=== PATIENT | male | born 1955 | race Caucasian/White ===

== ENCOUNTER → 2016-10-08 | Outpatient (CLI) | payer OTHER ==
[~2016-10-08] MED LIST: ASPI1TAB83; ATOR-26 PO; LISI-725 PO; METF-384 PO; XNX25
[2016-10-08 11:36] LABS: ESTIMATED AVERAGE GLUCOSE 148 mg/dl; HA1C FLAG Normal (Normal)
== END | disposition home or self-care (01) ==
LOC: C.LABBC 07:24
PROVIDERS: ATTEND Family Medicine
DX: E11.9 Type 2 diabetes mellitus without complications (principal)

== ENCOUNTER → 2017-04-23 | Outpatient (CLI) | payer OTHER ==
[2017-04-23 11:28] LABS: ALBUMIN 3.8 gm/dl (3.4-5.0); ALT/SGPT 35 U/L (12-78); BLOOD UREA NITROGEN 12 mg/dl (7-18); CALCIUM 9.3 mg/dl (8.5-10.1); CARBON DIOXIDE 27 mmol/L (21-32); GLUCOSE 173 mg/dl (70-99); POTASSIUM 4.9 mmol/L (3.5-5.1); SODIUM 134 mmol/L (136-145)
[2017-04-23 11:31] LABS: ALKALINE PHOSPHATASE 55 U/L (45-117); AST/SGOT 23 U/L (15-37); TOTAL PROTEIN 7.2 gm/dl (6.4-8.2)
[2017-04-23 11:36] LABS: HEMOGLOBIN A1C 6.9 % (4.5-5.6)
== END | disposition home or self-care (01) ==
LOC: C.LABBC 07:43
PROVIDERS: ATTEND Nurse Practitioner Adult Health
DX: E11.9 Type 2 diabetes mellitus without complications (principal); E78.00 Pure hypercholesterolemia, unspecified; I10 Essential (primary) hypertension; E55.9 Vitamin D deficiency, unspecified

== ENCOUNTER → 2017-06-12 | Outpatient (CLI) | payer OTHER ==
--- NOTE | 2017-06-12 12:56 | DIAGNOSTIC IMAGING REPORT ---
CHEST 2 VIEWS ROUTINE CLINICAL HISTORY: I10 [id number] Type 2 diabetes [id number] Hy pain. Cough. COMPARISON STUDY: No previous studies for comparison. FINDINGS: The bones soft tissues and hemidiaphragms are normal. The cardiomediastinal silhouette is normal. The lungs are clear. The pulmonary vasculature is normal. IMPRESSION: Negative chest. The above report was generated using voice recognition software. It may contain grammatical, syntax or spelling errors. Electronically signed by: Gagan Oleary M.D. 06/12/2017 12:54 PM Dictated Date/Time: 06/12/2017 12:54 PM
[2017-06-12 16:44] LABS: BASO % 0.3 %; BASO ABS # 0.02 K/uL (0-0.2); EOS % 4.1 %; EOS ABS # 0.25 K/uL (0-0.5); HEMATOCRIT 41.2 % (42-52); HEMOGLOBIN 14.4 g/dL (14.0-18.0); IG# 0.01 K/uL (0.00-0.02); LYMPH % 35.7 %; MEAN CELL VOLUME 92.2 fL (80-100); MEAN CORPUSCULAR HEMOGLOBIN 32.2 pg (25-34); MEAN PLATELET VOLUME 9.6 fL (7.4-10.4); MONO % 6.8 %; MONO ABS # 0.42 K/uL (0.11-0.59); NEUT % 52.9 %; NEUT ABS # 3.26 K/uL (1.4-6.5); PLATELET COUNT 243 K/uL (130-400); RED CELL DISTRIBUTION WIDTH CV 12.9 % (11.5-14.5); RED CELL DISTRIBUTION WIDTH SD 43.1 fL (36.4-46.3); WHITE BLOOD COUNT 6.16 K/uL (4.8-10.8)
[2017-06-12 17:08] LABS: ALBUMIN 3.5 gm/dl (3.4-5.0); ALT/SGPT 68 U/L (12-78); AST/SGOT 43 U/L (15-37); BLOOD UREA NITROGEN 19 mg/dl (7-18); CALCIUM 8.3 mg/dl (8.5-10.1); CARBON DIOXIDE 26 mmol/L (21-32); CREATININE 1.04 mg/dl (0.60-1.40); GLUCOSE 160 mg/dl (70-99); POTASSIUM 5.3 mmol/L (3.5-5.1); SODIUM 134 mmol/L (136-145)
[2017-06-12 17:18] LABS: ALKALINE PHOSPHATASE 64 U/L (45-117); TOTAL PROTEIN 6.8 gm/dl (6.4-8.2)
== END | disposition home or self-care (01) ==
LOC: C.RADBC 12:22
PROVIDERS: ATTEND Physician Assistant Medical
DX: R05 Cough (principal); E11.9 Type 2 diabetes mellitus without complications; I95.9 Hypotension, unspecified; E78.00 Pure hypercholesterolemia, unspecified; I10 Essential (primary) hypertension

== ENCOUNTER → 2017-07-27 | Day surgery (SDC) | payer OTHER ==
[2017-07-16 09:47] VITALS: Ht 172.7 cm; Wt 68.2 kg
[~2017-07-27] VITALS: Ht 172.7 cm; Wt 68.2 kg
[~2017-07-27] MED LIST changes: -ASPI1TAB83; +ASPI1TAB83 PO; +ATOR-22 PO; -ATOR-26 PO; +ESCI1TAB9 PO; +LIDOCAINE HCL 2% 2 ML VIAL (20MG/ML) ONE; -LISI-725 PO; +LISI1TAB3 PO; +METFTAB PO; +PROPOFOL IV EMULSION 10 MG/ML 20 ML VIAL IV ONE; +SODIUM CHLORIDE 0.9% 500ML 500 ML IV ONE; -XNX25
--- NOTE | 2017-07-27 09:08 | Endo History and Physical ---
History & Physical Date of Service: Jul 27, 2017. Chief Complaint: screening,history of polyps Referring Physician: Loly CARRILLO History of Present Illness 62 yo CM who presents for colonoscopy secondary to history of colon polyps. Past Medical History Diabetes, High Cholesterol, Hypertension Past Surgical History Hx Cardiac Surgery: No Hx Internal Defibrillator: No Hx Pacemaker: No Hx Abdominal Surgery: Yes (HERNIA REPAIR) Hx of Implantable Prosthesis: No Hx Post-Op Nausea and Vomiting: No Hx Cancer Surgery: No Hx Thoracic Surgery: No Hx Orthopedic: No Hx Urinary Tract Surgery: No Family History Polyp Social History Smoking Status: Former Smoker Hx Substance Use: No ( ) Hx Alcohol Use: Yes (COUPLE OF DRINKS DAILY OR LESS) Allergies Coded Allergies: No Known Allergies (Verified , 07/27/17) Current Medications Reported Home Medications Medications Dose Route/Sig Max Daily Dose Days Date Category Dose Instructions Zestril (Lisinopril) 30 Mg Tab 15 Mg PO QAM 07/16/17 Reported Lipitor (Atorvastatin Calcium) 20 Mg Tab 20 Mg PO DAILY 07/16/17 Reported TAKES WHEN HE REMENBERS Lexapro (Escitalopram Oxalate) 10 Mg Tab 10 Mg PO QAM 07/16/17 Reported Aspirin 81 Mg Tab 81 Mg PO QAM 10/26/13 Reported DOES NOT TAKE EVERY DAY PER PT Glucophage (Metformin Hcl) 1,000 Mg Tab 1,000 Mg PO QAM 10/26/13 Reported Glucophage Ext Rel (Metformin HCl) 500 Mg Tab 500 Mg PO QPM 07/16/17 Reported Vital Signs Weight (Kilograms): 68.18 Height (Feet): 5 Height (Inches): 8 Date Time Temp Pulse Resp B/P (MAP) Pulse Ox O2 Delivery O2 Flow Rate FiO2 07/27/17 08:47 37.2 91 98 160/88 (112) 98 Room Air Physical Exam General Appearance: WD/WN, no apparent distress Respiratory/Chest: Auscultation: breath sounds normal Cardiovascular: Heart Auscultation: RRR Abdomen: Bowel Sounds: normal Inspection & Palpation: soft, non-distended, no tenderness, guarding & rebound Assessment and Plan Assessment: 62 yo CM who presents for colonoscopy secondary to history of colon polyps. Plan: Proceed with colonoscopy.
--- NOTE | 2017-07-27 09:48 | Discharge Instructions ---
Endoscopy Patient Instructions Date / Procedure(s) Performed Jul 27, 2017. Colonoscopy Allergy Information Coded Allergies: No Known Allergies (Verified , 07/27/17) Discharge Date / Findings Jul 27, 2017. Colon polyp Diverticulosis Internal hemorrhoids Medication Instructions Stopped Medication(s): has not taken ASA "in a while" OK to resume all medications today as prescribed Reported Home Medications Medications Dose Route/Sig Max Daily Dose Days Date Category Dose Instructions Zestril (Lisinopril) 30 Mg Tab 15 Mg PO QAM 07/16/17 Reported Lipitor (Atorvastatin Calcium) 20 Mg Tab 20 Mg PO DAILY 07/16/17 Reported TAKES WHEN HE REMENBERS Lexapro (Escitalopram Oxalate) 10 Mg Tab 10 Mg PO QAM 07/16/17 Reported Aspirin 81 Mg Tab 81 Mg PO QAM 10/26/13 Reported DOES NOT TAKE EVERY DAY PER PT Glucophage (Metformin Hcl) 1,000 Mg Tab 1,000 Mg PO QAM 10/26/13 Reported Glucophage Ext Rel (Metformin HCl) 500 Mg Tab 500 Mg PO QPM 07/16/17 Reported Provider Instructions Activity Restrictions - No exercising or heavy lifting for 24 hours. - Do not drink alcohol the day of the procedure. - Do not drive a car or operate machinery until the day after the procedure. - Do not make any important decisions or sign important papers in 24 hours after the procedure. Following Day: - Return to full activity which may include returning to work/school. Diet Start your diet with liquids and light foods (jello, soup, juice, toast). Then eat your usual diet if not nauseated. Treatment For Common After Affects For mild abdominal pain, bloating, or excessive gas: - Rest - Eat lightly - Lie on right side Follow-Up Information Follow-up with Loly CARRILLO as scheduled Anesthesia Information What You Should Know You have had a procedure that required some medicine to reduce anxiety and discomfort. This treatment is called moderate sedation. After receiving the treatment, you may be sleepy, but you will be able to breathe on your own. The effects of the treatment may last for several hours. Follow these instructions along with Activity/Diet recommendations noted above: * Do NOT do anything where dizziness or clumsiness would be dangerous. * Rest quietly at home today, then you can be up and about tomorrow. * Have a responsible person stay with you the rest of today. * You may have had an I.V. today. If so, you may take the dressing off later today. Recommendations Call your doctor if: * Trouble breathing * Continuous vomiting for more than 24 hours * Temperature above 101 degrees * Severe abdominal pain or bloating * Pain not relieved by pain medicine ordered * There is increased drainage or redness from any incision * A large amount of rectal bleeding greater than 2-3 tablespoons. (If you had a polyp/s removed or have hemorrhoids, a small amount of blood - from the rectum is to be expected.) * You have any unanswered questions or concerns. IN THE EVENT OF A SERIOUS EMERGENCY, GO TO THE NEAREST EMERGENCY ROOM Your discharge instructions were prepared by provider Zach Perez. Patient Instructions Signature Page Simeon Campuzano Patient (or Guardian) Signature/Date: I have read and understand the instructions given to me by my caregivers. Caregiver/RN/Doctor Signature/Date: The above-named patient and/or guardian has received patient instructions on this date. + Original Patient Signature Page (only) stays with chart. Please make copy for patient.
--- NOTE | 2017-07-27 09:57 | GI REPORT ---
Procedure Date: 07/27/2017 9:11 AM Procedure: Colonoscopy Indications: High risk colon cancer surveillance: Personal history of colonic polyps Medicines: Monitored Anesthesia Care Complications: No immediate complications. Estimated Blood Loss: Estimated blood loss: none. Procedure: Pre-Anesthesia Assessment: - Prior to the procedure, a History and Physical was performed, and patient medications and allergies were reviewed. The patient's tolerance of previous anesthesia was also reviewed. The risks and benefits of the procedure and the sedation options and risks were discussed with the patient. All questions were answered, and informed consent was obtained. Prior Anticoagulants: The patient has taken no previous anticoagulant or antiplatelet agents. ASA Grade Assessment: II - A patient with mild systemic disease. After reviewing the risks and benefits, the patient was deemed in satisfactory condition to undergo the procedure. After I obtained informed consent, the scope was passed under direct vision. Throughout the procedure, the patient's blood pressure, pulse, and oxygen saturations were monitored continuously. The scope was introduced through the anus and advanced to the cecum, identified by appendiceal orifice and ileocecal valve. The colonoscopy was performed without difficulty. The patient tolerated the procedure well. The quality of the bowel preparation was good. The ileocecal valve, appendiceal orifice, and rectum were photographed. Findings: The perianal and digital rectal examinations were normal. A 5 mm polyp was found in the ascending colon. The polyp was sessile. The polyp was removed with a cold snare. Resection and retrieval were complete. Multiple small-mouthed diverticula were found in the sigmoid colon. Non-bleeding internal hemorrhoids were found during retroflexion. The hemorrhoids were small. Impression: - One 5 mm polyp in the ascending colon, removed with a cold snare. Resected and retrieved. - Diverticulosis in the sigmoid colon. - Non-bleeding internal hemorrhoids. Recommendation: - Resume previous diet. - Continue present medications. - Repeat colonoscopy for surveillance based on pathology results. - Return to primary care physician as previously scheduled. Zach Perez DO 07/27/2017 9:56:44 AM This report has been signed electronically. Note Initiated On: 07/27/2017 9:11 AM I attest to the content of the Intraoperative Record and orders documented therein, exceptions below
--- NOTE | 2017-07-27 10:11 | Anesthesiology Progress Note ---
Anesthesia Post Op Note Date & Time Jul 27, 2017 at 10:10 Vital Signs Pain Intensity: 0 Vital Signs Past 12 Hours Date Time Temp Pulse Resp B/P (MAP) Pulse Ox O2 Delivery O2 Flow Rate FiO2 07/27/17 10:08 71 16 126/78 (94) 98 Room Air 07/27/17 09:52 80 98 96/61 (73) 98 Room Air 07/27/17 08:47 37.2 91 98 160/88 (112) 98 Room Air Notes Mental Status: alert / awake / arousable, participated in evaluation Pt Amnestic to Procedure: Yes Nausea / Vomiting: adequately controlled Pain: adequately controlled Airway Patency, RR, SpO2: stable & adequate BP & HR: stable & adequate Hydration State: stable & adequate Anesthetic Complications: no major complications apparent
[2017-07-27 10:22] VITALS: BP 134/83; PULSE 71; O2SAT 98
== END | disposition home or self-care (01) ==
LOC: C.GI 08:15
PROVIDERS: ATTEND Internal Medicine
DX: Z12.11 Encounter for screening for malignant neoplasm of colon (principal); K57.30 Diverticulosis of large intestine without perforation or abscess without bleeding; K64.8 Other hemorrhoids; E11.9 Type 2 diabetes mellitus without complications; Z86.010 Personal history of colon polyps; I10 Essential (primary) hypertension; Z98.890 Other specified postprocedural states; Z83.71 Family history of colonic polyps; Z87.891 Personal history of nicotine dependence; Z79.899 Other long term (current) drug therapy; Z79.82 Long term (current) use of aspirin

== ENCOUNTER 2021-11-05 13:24 | Inpatient (IN) ==
[2021-11-05] MEDS ORDERED: SODIUM CHLORIDE 0.9% 1000ML 1,000 ML IV ONE (14:25)
--- NOTE | 2021-11-05 14:25 | Emergency Department Note ---
Impression & Plan Alcohol abuse, petroleum terminal plant operator (current) use of anticoagulants, Fall, Leukopenia, Transaminitis ED Provider Note NAME: JACINDA PAINTER AGE: 66 SEX: M : 1955 ARRIVES VIA: Walk-In INFORMANT: Patient ED PROVIDER(S): Low Perez DO CHIEF COMPLAINT: detox HPI: Patient is a 66-year-old male with a past medical history of hypomagnesium, long-term anticoagulants, alcohol abuse, diabetes, PE who presents to the ER for wanting to stop drinking. He drinks a liter to a liter and a half of vodka per day. He has been doing this for close to 3 years. His notes that he has fallen twice in the past 24 hours. He does not remember this. He denies any head pain or neck pain. No chest pain or belly pain. No other extremity pain. He notes that he does want to stop drinking. ROS: See above HPI for pertinent positives & negatives. A total of 10 systems reviewed and were otherwise negative. PAST MEDICAL HISTORY:See Below PAST SURGICAL HISTORY:See Below FAMILY HISTORY:See Below SOCIAL HISTORY:See Below HOME MEDICATIONS:See Below ALLERGIES:See Below VITALS:See Below PHYSICAL EXAMINATION: GENERAL: Sitting up in bed, alert, well appearing, well nourished, no distress, non-toxic EYE EXAM: normal conjunctiva. HEAD: NC/AT OROPHARYNX: no exudate, no erythema, lips, buccal mucosa, and tongue normal and mucous membranes are moist NECK: supple, no nuchal rigidity, no adenopathy, non-tender LUNGS: Clear to auscultation. Normal chest wall mechanics HEART: no murmurs, S1 normal and S2 normal ABDOMEN: abdomen soft, non-tender, normo-active bowel sounds, no masses, no rebound or guarding. UPPER EXTREMITIES: upper extremities are grossly normal. LOWER EXTREMITIES: No pitting edema. NEURO EXAM: Normal sensorium, cranial nerves II-XII grossly intact, normal speech, no gross weakness of arms, no gross weakness of legs. MEDICAL DECISION MAKING: Is a 66-year-old male who presents the ER for recurrent falls and alcohol abuse wanting to stop. IV was established blood work was obtained. Labs show mild leukopenia 4.5. No significant anemia. BMP along with LFTs was remarkable for mild transaminitis. Magnesium slightly low at 1.6. Glucose low at 61. Lipase was normal. UA was contaminated. Tox was negative. Alcohol was elevated 200. COVID-negative. T head and cervical spine was negative. Patient was updated be dside. He was discussed with the hospitalist for further observation due to quantity of alcohol that he had just and the likelihood of withdrawal. Triage Nursing notes reviewed. Limited review of prior medical records performed Vital Signs: reviewed and remarkable for hypotenison Differential diagnosis: Infection, dehydration, metabolic abnormality, hypo/hyperglycemia, electrolyte disturbance, anemia, hypoxia, cardiac sources, intracerebral event, toxicologic, neurologic, as well as other pathologies. ER treatment provided: See below Diagnostics interpreted by me: ECG: none Cardiac Monitoring: An order was placed for continuous cardiac monitoring. The monitor shows a rate of 80 with sinus rhythm. Laboratory studies: As stated above and show below. Imaging studies: CT head and neck were negative Consultation(s): Discussed with Dr. Vivas for further evaluation Procedures: none Critical Care: None Past Med/Surg History Medical History (Updated 11/05/21 @ 19:24 by Low Perez DO) Adopted child family history not known with exception to brother as he was adopted at young age Alcohol abuse resolved per pt Anxiety Arthritis Diverticulosis GERD (gastroesophageal reflux disease) Hx of gastric ulcer Hx of gastric ulcer Hyperlipidemia Hypertension Idiopathic scoliosis On anticoagulant therapy on warfarin daily Pulmonary embolism 2 YEARS AGO (REASON FOR COUMADIN) > unknown cause per pt Tubular adenoma of colon Type 2 diabetes mellitus NIDDM Surgical History H/O [place] I operation 2nd to perforated gastric ulcer - 12/2017 H/O hemorrhoidectomy H/O resection of stomach 2nd to perforated gastric ulcer - 12/2017 History of colonoscopy History of ear surgery REMOVED "SOMETHING IN EAR" History of right cataract surgery Hx of inguinal hernia surgery (10/25/19) Left Open Indirect and Direct Inguinal Hernia Repair with Mesh Dr. Melendrez 10/25/2019 Hx of vasectomy [place] teeth extracted Family History Brother Type 2 diabetes mellitus Hypertension Hemorrhoids Other Adopted person Unknown family medical history Social History Smoking Status: Former smoker Second Hand Exposure: No; Hx Alcohol Use: No Hx Substance Use: No Preferred Language: Tajik Communication Ability: Effective Visual Impairment: Limited Hearing Ability: Normal Reception Required: No Beliefs That Will Affect Care: None marital status: Current Living Situation: Spouse Current Living Situation Comment: sophia [phone] current occupational status: unemployed How many Children do You have: 1 Feels Safe at Home: Yes Childhood Exposure to Second-Hand Smoke: Yes caffeine: Yes Dental Care, Regularly: Yes Physical Activity Frequency: 5-6 Times per Week Physical Activity Frequency Comment: walks daily Seatbelt Use: always Sunscreen Use: No Assistive Devices: Glasses Allergies Allergies Allergy/AdvReac Type Severity Reaction Status Date / Time No Known Drug Allergies Allergy Unknown Verified 11/05/21 15:02 Home Meds Home Medications Medication Instructions Recorded Confirmed acetaminophen 500 mg tablet 1,000 mg PO DAILY PRN pain 01/02/20 11/05/21 (Tylenol Extra Strength) multivitamin 1 tab PO QAM 08/22/20 11/05/21 buspirone 10 mg tablet 10 mg PO BID 11/30/20 11/05/21 escitalopram oxalate 20 mg tablet 20 mg PO QAM 11/30/20 11/05/21 topiramate 100 mg tablet 100 mg PO PM 04/24/21 11/05/21 glipizide 5 mg tablet, extended 5 mg PO PM 05/31/21 11/05/21 release 24 hr pantoprazole 40 mg tablet,delayed 40 mg PO QAM 05/31/21 11/05/21 release clonidine HCl 0.1 mg tablet 0.1 mg PO DAILY 09/04/21 11/05/21 aripiprazole 2 mg tablet 2 mg PO QAM 11/05/21 11/05/21 Previous Rx's Medication Instructions Recorded metformin 500 mg tablet,extended 1,000 mg PO BID #360 tabs 11/21/20 release 24 hr atorvastatin 10 mg tablet 10 mg PO DAILY #90 tabs 07/01/21 lisinopril 2.5 mg tablet 2.5 mg PO DAILY #90 tabs 07/31/21 enoxaparin 40 mg/0.4 mL 40 mg (0.4 mL) subcut Q24H #30 09/25/21 subcutaneous syringe syringes Results & Data (ED) Vital Signs Vital Signs - 24 hr 11/05/21 13:40 11/05/21 14:10 11/05/21 14:13 Temperature 36.7 C Temperature Source Temporal Artery Scan Pulse Rate 82 Pulse Rate [Radial] Pulse Rhythm Pulse Rhythm [Radial] Pulse Strength [Radial] Respiratory Rate 18 Respiratory Effort / Characteristics Non-Labored Respiratory Depth Normal Respiratory Pattern Blood Pressure 94/72 L Blood Pressure [Left Arm] Blood Pressure Mean 79 Blood Pressure Mean [Left Arm] Blood Pressure Position [Left Arm] Pulse Oximetry 96 Oxygen Delivery Method Room Air Room Air Room Air Sepsis Recent Fever Within 48 Hours No Sepsis New/Unexplained Change in Mental Status No Sepsis Action Taken by Nursing No Action Required 11/05/21 14:31 11/05/21 15:38 11/05/21 17:57 Temperature Temperature Source Pulse Rate 83 Pulse Rate [Radial] 84 87 Pulse Rhythm Regular Pulse Rhythm [Radial] Regular Regular Pulse Strength [Radial] Normal Normal Respiratory Rate 18 17 17 Respiratory Effort / Characteristics Non-Labored Spontaneous Non-Labored Spontaneous Respiratory Depth Normal Normal Respiratory Pattern Regular Regular Blood Pressure Blood Pressure [Left Arm] 127/80 138/94 Blood Pressure Mean Blood Pressure Mean [Left Arm] 95 108 Blood Pressure Position [Left Arm] Sitting Lying Pulse Oximetry 98 98 98 Oxygen Delivery Method Room Air Room Air Room Air Sepsis Recent Fever Within 48 Hours Sepsis New/Unexplained Change in Mental Status Sepsis Action Taken by Nursing Laboratory Data Result diagrams: 11/05/21 14:11 11/05/21 14:11 Lab Results 11/05/21 11/05/21 11/05/21 Range/Units 14:08 14:08 14:11 WBC 4.53 L (4.8-10.8) K/ul RBC 4.32 L (4.63-6.08) M/uL Hgb 13.6 L (14.0-18.0) g/dl Hct 41.7 (40.1-51.0) % MCV 96.5 (80.0-100.0) fL MCH 31.5 (25.0-34.0) pg MCHC 32.6 (32.0-36.0) g/dL RDW Std Deviation 49.0 H (36.4-46.3) fL RDW Coeff of Norm 13.8 (11.5-14.5) % Plt Count 231 (130-400) K/uL MPV 9.8 (9.4-12.4) fL Immature Gran % (Auto) 0.2 % Neut % (Auto) 38.7 % Lymph % (Auto) 51.7 % Pender % (Auto) 7.5 % Eos % (Auto) 1.5 % Baso % (Auto) 0.4 % Neut # (Auto) 1.75 (1.4-6.5) K/uL Lymph # (Auto) 2.34 (1.2-3.4) K/uL Pender # (Auto) 0.34 (0.24-0.82) K/uL Eos # (Auto) 0.07 (0-0.50) K/uL Baso # (Auto) 0.02 (0-0.2) K/uL Immature Gran # (Auto) 0.01 (0.00-0.02) K/uL Sodium Cancelled Potassium Cancelled Chloride Cancelled Carbon Dioxide Cancelled Anion Gap Cancelled BUN Cancelled Creatinine Cancelled Est Cr Clr Drug Dosing Cancelled Est GFR ( Amer) Cancelled Est GFR (Non-Af Amer) Cancelled BUN/Creatinine Ratio Cancelled Glucose Cancelled Calcium Cancelled Magnesium (1.7-2.4) mg/dl Total Bilirubin (0.2-1.0) mg/dl Direct Bilirubin (0-0.2) mg/dl AST (13-39) U/L ALT (7-52) U/L Alkaline Phosphatase (34-104) U/L Total Protein (6.0-8.3) gm/dl Albumin (3.4-5.0) gm/dl Lipase (11-82) U/L Urine Color Urine Appearance (Clear) Urine pH (4.5-7.5) Ur Specific [place] (1.000-1.030) Urine Protein (Negative) Urine Glucose (UA) (Negative) Urine Ketones (Negative) Urine Blood (Negative) Urine Nitrite (Negative) Urine Bilirubin (Negative) Urine Urobilinogen (Negative) Ur Leukocyte Esterase (Negative) Urine WBC (Auto) (0-5) /hpf Urine RBC (Auto) (0-4) /hpf U Hyaline Cast (Auto) (0-5) /lpf U Epithel Cells (Auto) (0-5) /lpf Urine Bacteria (Auto) (Negative) Urine Opiates Screen (Neg) Ur Methadone, Qual (Neg) Urine Barbiturates (Neg) Ur Phencyclidine (PCP) (Neg) U Amphetamin/Meth Scrn (Neg) MDMA (Ecstasy) Screen (Neg) U Benzodiazepines Scrn (Neg) Ur Cocaine Metabolite (Neg) U Marijuana (THC) Screen (Neg) Ethyl Alcohol mg/dL 200.7 H (<10.0) mg/dl SARS-CoV-2, RNA, NAAT (NEGATIVE) 11/05/21 11/05/21 11/05/21 Range/Units 14:11 14:50 14:50 WBC (4.8-10.8) K/ul RBC (4.63-6.08) M/uL Hgb (14.0-18.0) g/dl Hct (40.1-51.0) % MCV (80.0-100.0) fL MCH (25.0-34.0) pg MCHC (32.0-36.0) g/dL RDW Std Deviation (36.4-46.3) fL RDW Coeff of Norm (11.5-14.5) % Plt Count (130-400) K/uL MPV (9.4-12.4) fL Immature Gran % (Auto) % Neut % (Auto) % Lymph % (Auto) % Pender % (Auto) % Eos % (Auto) % Baso % (Auto) % Neut # (Auto) (1.4-6.5) K/uL Lymph # (Auto) (1.2-3.4) K/uL Pender # (Auto) (0.24-0.82) K/uL Eos # (Auto) (0-0.50) K/uL Baso # (Auto) (0-0.2) K/uL Immature Gran # (Auto) (0.00-0.02) K/uL Sodium 141 Potassium 4.2 Chloride 103 Carbon Dioxide 26 Anion Gap 12 H BUN 22 Creatinine 1.15 Est Cr Clr Drug Dosing 60.3 Est GFR ( Amer) 75.9 Est GFR (Non-Af Amer) 65.5 BUN/Creatinine Ratio 19.1 Glucose 61 L Calcium 8.5 Magnesium 1.6 L (1.7-2.4) mg/dl Total Bilirubin 0.5 (0.2-1.0) mg/dl Direct Bilirubin 0.1 (0-0.2) mg/dl AST 54 H (13-39) U/L ALT 79 H (7-52) U/L Alkaline Phosphatase 55 (34-104) U/L Total Protein 6.5 (6.0-8.3) gm/dl Albumin 4.1 (3.4-5.0) gm/dl Lipase 45 (11-82) U/L Urine Color Yellow Urine Appearance Clear (Clear) Urine pH 5.0 (4.5-7.5) Ur Specific [place] 1.017 (1.000-1.030) Urine Protein 1+ H (Negative) Urine Glucose (UA) Negative (Negative) Urine Ketones Trace H (Negative) Urine Blood Trace H (Negative) Urine Nitrite Negative (Negative) Urine Bilirubin Negative (Negative) Urine Urobilinogen Negative (Negative) Ur Leukocyte Esterase Negative (Negative) Urine WBC (Auto) 1-5 (0-5) /hpf Urine RBC (Auto) 0-4 (0-4) /hpf U Hyaline Cast (Auto) 10-30 H (0-5) /lpf U Epithel Cells (Auto) >30 H (0-5) /lpf Urine Bacteria (Auto) Negative (Negative) Urine Opiates Screen Neg (Neg) Ur Methadone, Qual Neg (Neg) Urine Barbiturates Neg (Neg) Ur Phencyclidine (PCP) Neg (Neg) U Amphetamin/Meth Scrn Neg (Neg) MDMA (Ecstasy) Screen Neg (Neg) U Benzodiazepines Scrn Neg (Neg) Ur Cocaine Metabolite Neg (Neg) U Marijuana (THC) Screen Neg (Neg) Ethyl Alcohol mg/dL (<10.0) mg/dl SARS-CoV-2, RNA, NAAT (NEGATIVE) 11/05/21 Range/Units 15:51 WBC (4.8-10.8) K/ul RBC (4.63-6.08) M/uL Hgb (14.0-18.0) g/dl Hct (40.1-51.0) % MCV (80.0-100.0) fL MCH (25.0-34.0) pg MCHC (32.0-36.0) g/dL RDW Std Deviation (36.4-46.3) fL RDW Coeff of Norm (11.5-14.5) % Plt Count (130-400) K/uL MPV (9.4-12.4) fL Immature Gran % (Auto) % Neut % (Auto) % Lymph % (Auto) % [place] % (Auto) % Eos % (Auto) % Baso % (Auto) % Neut # (Auto) (1.4-6.5) K/uL Lymph # (Auto) (1.2-3.4) K/uL [place] # (Auto) (0.24-0.82) K/uL Eos # (Auto) (0-0.50) K/uL Baso # (Auto) (0-0.2) K/uL Immature Gran # (Auto) (0.00-0.02) K/uL Sodium Potassium Chloride Carbon Dioxide Anion Gap BUN Creatinine Est Cr Clr Drug Dosing Est GFR ( Amer) Est GFR (Non-Af Amer) BUN/Creatinine Ratio Glucose Calcium Magnesium (1.7-2.4) mg/dl Total Bilirubin (0.2-1.0) mg/dl Direct Bilirubin (0-0.2) mg/dl AST (13-39) U/L ALT (7-52) U/L Alkaline Phosphatase (34-104) U/L Total Protein (6.0-8.3) gm/dl Albumin (3.4-5.0) gm/dl Lipase (11-82) U/L Urine Color Urine Appearance (Clear) Urine pH (4.5-7.5) Ur Specific [place] (1.000-1.030) Urine Protein (Negative) Urine Glucose (UA) (Negative) Urine Ketones (Negative) Urine Blood (Negative) Urine Nitrite (Negative) Urine Bilirubin (Negative) Urine Urobilinogen (Negative) Ur Leukocyte Esterase (Negative) Urine WBC (Auto) (0-5) /hpf Urine RBC (Auto) (0-4) /hpf U Hyaline Cast (Auto) (0-5) /lpf U Epithel Cells (Auto) (0-5) /lpf Urine Bacteria (Auto) (Negative) Urine Opiates Screen (Neg) Ur Methadone, Qual (Neg) Urine Barbiturates (Neg) Ur Phencyclidine (PCP) (Neg) U Amphetamin/Meth Scrn (Neg) MDMA (Ecstasy) Screen (Neg) U Benzodiazepines Scrn (Neg) Ur Cocaine Metabolite (Neg) U Marijuana (THC) Screen (Neg) Ethyl Alcohol mg/dL (<10.0) mg/dl SARS-CoV-2, RNA, NAAT NEGATIVE (NEGATIVE) Administered Medications Discontinued Medications Sodium Chloride (Nss 1000ml) 1,000 mls @ 999 mls/hr IV .Q1H1M ONE Stop: 11/05/21 15:25 Last Infusion: 11/05/21 16:18 Dose: 0 mls/hr Documented By: Admin: 11/05/21 14:30 Dose: 999 mls/hr Documented By: [facility] Imaging Data Radiologist's Impression: Cervical Spine CT 11/05/21 14:21 CT cervical spine wo con CLINICAL HISTORY: fall . Neck pain COMPARISON STUDY: 09/12/2021 CT DOSE: 1091.96 mGy.cm TECHNIQUE: Standard CT of the Cervical Spine was performed without IV contrast. A dose lowering technique was utilized adhering to the principles of ALARA. FINDINGS: Bones: There is again a prominent torticollis, convex to the left. The bones are osteopenic. There is no evidence for an acute fracture or malalignment. The heights of the vertebral bodies are maintained. The vertebral bodies are in anatomic alignment. The odontoid is intact. Degenerative changes are seen at the atlantoaxial articulation. Disc spaces: There is again moderate to marked disc space narrowing from C2 through C7 with endplate cirrhosis and osteophyte formation. Apophyseal joints: Degenerative apophyseal joint disease is seen greater on the left than right. Soft tissues: The prevertebral soft tissues are within normal limits. IMPRESSION: 1. Osteopenia with persistent torticollis 2. No acute osseous pathology. 3. Degenerative disc and degenerative joint disease. ACT 112: Negative or not required by law. Electronically signed by: Yasir Rg M.D. 11/05/2021 3:[address] 11/05/21 14:21 CT head/brain wo con CLINICAL HISTORY: fall . Pain COMPARISON STUDY: 09/12/2021 CT DOSE: TECHNIQUE: Standard CT of the Brain was performed without IV contrast. A dose lowering technique was utilized adhering to the principles of ALARA. FINDINGS: Extraaxial space: There is no evidence for subdural hematoma. There are no extra-axial fluid collections. Ventricles and cisterns: The ventricles are mildly dilated bilaterally. There is no evidence for midline shift or mass effect. Parenchyma: There is no subarachnoid or intraparenchymal hemorrhage. There is no evidence for an acute infarct or cerebral edema. There is mild cerebral cortical atrophy and decreased attenuation in the periventricular white matter representing remote small vessel disease. There are no gross mass lesions. Osseous structures: There is no evidence for an acute fracture. The visualized paranasal sinuses are clear. The mastoid air cells are clear bilaterally. Soft tissues: There is no evidence for focal soft tissue swelling. IMPRESSION: 1. No acute intracerebral pathology. 2. Mild cerebral cortical atrophy and remote small vessel disease are again seen. ACT 112: Negative or not required by law. Electronically signed by: Yasir Rg M.D. 11/05/2021 3:00 PM Discharge Plan Visit Data Chief Complaint: Detox Request Stated Complaint: DETOX ED Provider: Low Perez Discharge Problem: Alcohol abuse, petroleum terminal plant operator (current) use of anticoagulants, Fall, Leukopenia, T ransaminitis Forms Stand Alone Forms: My [facility], Suicide Prevention Resources Prescriptions Prescriptions: No Action acetaminophen [Tylenol Extra Strength] 500 mg tablet 1,000 mg PO DAILY PRN (Reason: pain) multivitamin Tablet 1 tab PO QAM topiramate 100 mg tablet 100 mg PO PM enoxaparin 40 mg/0.4 mL syringe 40 mg subcut Q24H Qty: 30 1RF metformin 500 mg tablet extended release 24 hr 1,000 mg PO BID Qty: 360 3RF atorvastatin 10 mg tablet 10 mg PO DAILY Qty: 90 3RF lisinopril 2.5 mg tablet 2.5 mg PO DAILY Qty: 90 3RF clonidine HCl 0.1 mg tablet 0.1 mg PO DAILY buspirone 10 mg tablet 10 mg PO BID escitalopram oxalate 20 mg tablet 20 mg PO QAM glipizide 5 mg tablet extended release 24 hr 5 mg PO PM pantoprazole 40 mg tablet,delayed release (DR/EC) 40 mg PO QAM aripiprazole 2 mg tablet 2 mg PO QAM Referrals Referrals: Jose Norris DO [Primary Care Provider] -
[2021-11-05 14:28] LABS: Hematocrit (blood only) 41.7 % (40.1-51.0); Hemoglobin 13.6 g/dl (14.0-18.0); Mean Corpuscular Hemoglobin 31.5 pg (25.0-34.0); Mean Corpuscular Hgb Conc 32.6 g/dL (32.0-36.0); Mean Corpuscular Volume 96.5 fL (80.0-100.0); Mean Platelet Volume 9.8 fL (9.4-12.4); Platelet Count 231 K/uL (130-400); RDW Coefficient of Variation 13.8 % (11.5-14.5); Red Blood Count 4.32 M/uL (4.63-6.08); White Blood Count 4.53 K/ul (4.8-10.8)
[2021-11-05 14:48] LABS: Albumin Level 4.1 gm/dl (3.4-5.0); BUN Creatinine Ratio 19.1 (10-20); Bilirubin Direct 0.1 mg/dl (0-0.2); Bilirubin,Total 0.5 mg/dl (0.2-1.0); Calcium 8.5 mg/dl (8.5-10.1); Creatinine Clr Calc Pharmacy 60.3 ml/min; Est GFR (African American) 75.9 ml/min; Est GFR (Non-African American) 65.5 ml/min; Magnesium 1.6 mg/dl (1.7-2.4); Potassium 4.2 mmol/L (3.5-5.1); Total Protein 6.5 gm/dl (6.0-8.3)
--- NOTE | 2021-11-05 15:02 | CT Scan Report ---
CT head/brain wo con CLINICAL HISTORY: fall . Pain COMPARISON STUDY: 09/12/2021 CT DOSE: TECHNIQUE: Standard CT of the Brain was performed without IV contrast. A dose lowering technique was utilized adhering to the principles of ALARA. FINDINGS: Extraaxial space: There is no evidence for subdural hematoma. There are no extra-axial fluid collecti ons. Ventricles and cisterns: The ventricles are mildly dilated bilaterally. There is no evidence for midl ine shift or mass effect. Parenchyma: There is no subarachnoid or intraparenchymal hemorrhage. There is no evidence for an acut e infarct or cerebral edema. There is mild cerebral cortical atrophy and decreased attenuation in the periventricular white matter representing remote small vessel disease. There are no gross mass lesio ns. Osseous structures: There is no evidence for an acute fracture. The visualized paranasal sinuses are clear. The mastoid air cells are clear bilaterally. Soft tissues: There is no evidence for focal soft tissue swelling. IMPRESSION: 1. No acute intracerebral pathology. 2. Mild cerebral cortical atrophy and remote small vessel disease are again seen. ACT 112: Negative or not required by law. Electronically signed by: Yasir Rg M.D. 11/05/2021 3:00 PM
--- NOTE | 2021-11-05 15:07 | CT Scan Report ---
CT cervical spine wo con CLINICAL HISTORY: fall . Neck pain COMPARISON STUDY: 09/12/2021 CT DOSE: 1091.96 mGy.cm TECHNIQUE: Standard CT of the Cervical Spine was performed without IV contrast. A dose lowering josh hnique was utilized adhering to the principles of ALARA. FINDINGS: Bones: There is again a prominent torticollis, convex to the left. The bones are osteopenic. There is no evidence for an acute fracture or malalignment. The heights of the vertebral bodies are maintaine d. The vertebral bodies are in anatomic alignment. The odontoid is intact. Degenerative changes are s een at the atlantoaxial articulation. Disc spaces: There is again moderate to marked disc space narrowing from C2 through C7 with endplate cirrhosis and osteophyte formation. Apophyseal joints: Degenerative apophyseal joint disease is seen greater on the left than right. Soft tissues: The prevertebral soft tissues are within normal limits. IMPRESSION: 1. Osteopenia with persistent torticollis 2. No acute osseous pathology. 3. Degenerative disc and degenerative joint disease. ACT 112: Negative or not required by law. Electronically signed by: Yasir Rg M.D. 11/05/2021 3:05 PM
[2021-11-05 15:31] LABS: Basophils # (auto) 0.02 K/uL (0-0.2); Basophils % (auto) 0.4 %; Eosinophils # (auto) 0.07 K/uL (0-0.50); Eosinophils % (auto) 1.5 %; Immature Granulocytes # (auto) 0.01 K/uL (0.00-0.02); Immature Granulocytes % (auto) 0.2 %; Lymphocytes # (auto) 2.34 K/uL (1.2-3.4); Lymphocytes % (auto) 51.7 %; Monocytes # (auto) 0.34 K/uL (0.24-0.82); Monocytes % (auto) 7.5 %; Neutrophils # (auto) 1.75 K/uL (1.4-6.5); Neutrophils % (auto) 38.7 %
[2021-11-05 15:53] LABS: Appearance Urine Clear (Clear); Bacteria Urine Automated Negative (Negative); Bilirubin Urine Negative (Negative); Blood Urine Trace (Negative); Color Urine Yellow; Epithelial Cell Urine Auto >30 /lpf (0-5); Glucose Urine UA Negative (Negative); Ketones Urine Trace (Negative); Leukocyte Esterase Urine Negative (Negative); Nitrite Urine Negative (Negative); Protein Urine 1+ (Negative); RBC Urine Automated 0-4 /hpf (0-4); Specific Gravity Urine 1.017 (1.000-1.030); Urobilinogen Urine Negative (Negative)
[2021-11-05] MEDS ORDERED: PHENobarbital sodium 65 MG/ML VIAL IV STA (16:02)
[2021-11-05] MEDS ORDERED: SODIUM CHLORIDE 0.9% IV ONE (16:15)
[2021-11-05] MEDS ORDERED: PHENOBARBITAL SODIUM IV ONE (16:15)
[2021-11-05 16:42] LABS: Amphetamines+Metham, Urine Neg (Neg); Barbiturates, Urine Neg (Neg); Benzodiazepine, Urine Neg (Neg); Cocaine, Urine Neg (Neg); MDMA (Ecstacy), Urine Neg (Neg); Methadone, Urine Neg (Neg); Opiate, Urine Neg (Neg); Phencyclidine, Urine Neg (Neg)
--- NOTE | 2021-11-05 16:52 | History & Physical Report ---
Date of Service November 05, 2021 Assessment & Plan (1) Alcohol abuse: Plan: Drinks 1 to 1.5 bottles of vodka per day for years. No major hx of withdrawals per patient. - Given no hx of cirrhosis and lack of other acute medical issues, he seems like a good candidate for phenobarbital taper. With no major acute withdrawal symptoms, will start with PO. * Phenobarbital 90 mg PO TID through 11/06 * Phenobarbital 60 mg PO TID on 11/07 * Phenobarbital 30 mg PO TID on 11/08, then stop. - Hold dose if RASS < -1 (ie anything other than a light sleep). Notify provider if skipping doses - Dose-reduced Ativan also entered with [facility] protocol. (2) Type 2 diabetes mellitus: Plan: A1c was 6.3% in 08/2021. - Hold oral meds. - Sliding scale insulin (3) Hypertension: Plan: BP in the ER was 130/80. - Continue home lisinopril (4) Hyperlipidemia: Plan: - Continue atorvastatin (5) Anxiety: Plan: No overt anxiety on my exam today. - Continue home aripiprazole, buspirone, clonidine, escitalopram, and topiramate - Monitor while adding phenobarbital for his alcohol withdrawal (6) Pulmonary embolism: Plan: Hx of PE. Was on warfarin, but switched to Lovenox given difficulty with labile INR in setting of heavy drinking. - Continue Lovenox 40 mg SQ daily History of Present Illness Primary Care Provider: Jose Norris, DO 66yo M w/ hx of PE, DM2, GERD, and alcohol abuse who presents with request for alcohol detox. The patient reports he drinks 1 to 1 1/2 bottles of vodka per day. He has had this approximate level of alcohol intake for years. He does not remember his last sustained period of sobriety. He has never had alcohol withdrawal seizures or DTs. He reports that he will sometimes get tremors and has felt "uncomfortable" in the past when going through withdrawals. Allergies Allergy/AdvReac Type Severity Reaction Status Date / Time No Known Drug Allergies Allergy Unknown Verified 11/05/21 15:02 Home Medications Medication Instructions Recorded Confirmed Type acetaminophen 500 mg tablet 1,000 mg PO DAILY PRN pain 01/02/20 11/05/21 History (Tylenol Extra Strength) multivitamin 1 tab PO QAM 08/22/20 11/05/21 History metformin 500 mg tablet,extended 1,000 mg PO BID #360 tabs 11/21/20 11/05/21 Rx release 24 hr buspirone 10 mg tablet 10 mg PO BID 11/30/20 11/05/21 History escitalopram oxalate 20 mg tablet 20 mg PO QAM 11/30/20 11/05/21 History topiramate 100 mg tablet 100 mg PO PM 04/24/21 11/05/21 History glipizide 5 mg tablet, extended 5 mg PO PM 05/31/21 11/05/21 History release 24 hr pantoprazole 40 mg tablet,delayed 40 mg PO QAM 05/31/21 11/05/21 History release atorvastatin 10 mg tablet 10 mg PO DAILY #90 tabs 07/01/21 11/05/21 Rx lisinopril 2.5 mg tablet 2.5 mg PO DAILY #90 tabs 07/31/21 11/05/21 Rx clonidine HCl 0.1 mg tablet 0.1 mg PO DAILY 09/04/21 11/05/21 History enoxaparin 40 mg/0.4 mL 40 mg (0.4 mL) subcut Q24H #30 09/25/21 11/05/21 Rx subcutaneous syringe syringes aripiprazole 2 mg tablet 2 mg PO QAM 11/05/21 11/05/21 History Past Med/Surg History Medical History (Updated 11/05/21 @ 16:51 by Víctor Vivas MD) Adopted child family history not known with exception to brother as he was adopted at young age Alcohol abuse resolved per pt Anxiety Arthritis Diverticulosis GERD (gastroesophageal reflux disease) Hx of gastric ulcer Hx of gastric ulcer Hyperlipidemia Hypertension Idiopathic scoliosis On anticoagulant therapy on warfarin daily Pulmonary embolism 2 YEARS AGO (REASON FOR COUMADIN) > unknown cause per pt Tubular adenoma of colon Type 2 diabetes mellitus NIDDM Surgical History H/O Billroth I operation 2nd to perforated gastric ulcer - 12/2017 H/O hemorrhoidectomy H/O resection of stomach 2nd to perforated gastric ulcer - 12/2017 History of colonoscopy History of ear surgery REMOVED "SOMETHING IN EAR" History of right cataract surgery Hx of inguinal hernia surgery (10/25/19) Left Open Indirect and Direct Inguinal Hernia Repair with Mesh Dr. Melendrez 10/25/2019 Hx of vasectomy [place] teeth extracted Family History Brother Type 2 diabetes mellitus Hypertension Hemorrhoids Other Adopted person Unknown family medical history Social History Smoking Status: Former smoker Second Hand Exposure: No; Hx Alcohol Use: No Hx Substance Use: No Preferred Language: Nepali Communication Ability: Effective Visual Impairment: Limited Hearing Ability: Normal Field Research Associate Required: No Beliefs That Will Affect Care: None marital status: Current Living Situation: Spouse Current Living Situation Comment: sophia [phone] current occupational status: unemployed How many Children do You have: 1 Feels Safe at Home: Yes Childhood Exposure to Second-Hand Smoke: Yes caffeine: Yes Dental Care, Regularly: Yes Physical Activity Frequency: 5-6 Times per Week Physical Activity Frequency Comment: walks daily Seatbelt Use: always Sunscreen Use: No Assistive Devices: Glasses Review of Systems Review of Systems: All systems reviewed & are unremarkable except as noted in HPI & below Physical Exam Constitutional: WD/WN, vitals as above Eyes: EOM intact bilaterally; no conjunctival abnormality ENMT: external ear and nose normal, oropharynx normal Neck: trachea midline, no thyromegaly normal visual inspection Respiratory: normal respiratory effort, lungs clear to auscultation no respiratory distress Cardiovascular: RRR, no murmur, no edema Gastrointestinal (Abdomen): Inspection/Auscultation: abdomen normal to inspection; abdomen not distended Musculoskeletal: no cyanosis or clubbing, extremities motor strength 5/5 Skin: no rashes, warm and dry Neurologic: moves all extremities and awake No tremor with outstretched arms. Mild tongue fasciculations. Psychiatric: Orientation: alert, oriented to person and cooperative Results & Data Results & Data ([facility]) Vital Signs (Past 12 Hours) Vital Signs Temp Pulse Pulse Resp BP BP Pulse Ox 11/05/21 15:38 84 17 127/80 98 11/05/21 14:31 83 18 98 11/05/21 14:13 11/05/21 14:10 11/05/21 13:40 36.7 C 82 18 94/72 L 96 O2 Del Method 11/05/21 15:38 Room Air 11/05/21 14:31 Room Air 11/05/21 14:13 Room Air 11/05/21 14:10 Room Air 11/05/21 13:40 Room Air Code Status & VTE Plan VTE Prophylaxis Plan VTE Prophylaxis will be ordered: Yes PG Care Time/CCT Total # of Minutes Spent Total Time Spent with Patient: Total time spent is greater than 50% in coordination of care (as documented) at patient's floor/unit and/or counseling patient: Coding Level of Care Code 13599 Initial Inpt Care Lvl 3 Diagnoses Alcohol abuse F10.10 Type 2 diabetes mellitus E11.9 Hypertension I10 Hyperlipidemia E78.5 Anxiety F41.9 Pulmonary embolism I26.99
[2021-11-05] MEDS ORDERED: ACETAMINOPHEN 500 MG TAB PO PRN (19:52)
[2021-11-05] MEDS ORDERED: LORazepam 2 MG in SYRINGE 1.5 ML IV PRN (19:52)
[2021-11-05] MEDS ORDERED: ONDANSETRON INJ 2 MG/ML 2 ML VIAL IV PRN (19:52)
[2021-11-05] MEDS ORDERED: GLUCAGON FOR INJ 1 MG VIAL SQ PRN (19:52)
[2021-11-05] MEDS ORDERED: DEXTROSE 50% 50 ML SYRINGE IV PRN (19:52)
[2021-11-05] MEDS ORDERED: THIAMINE HCL 300 MG in SYRINGE 9 ML IV SCH (19:52)
[2021-11-05] MEDS ORDERED: GLUCOSE 10 TAB/TUBE PO PRN (19:52)
[2021-11-05] MEDS ORDERED: GLUCOSE 40% GEL 15 GM TUBE PO PRN (19:52)
[2021-11-05] MEDS ORDERED: Ativan IV Alcohol Withdrawal--Active Protocol IV PRN (19:52)
[2021-11-05] MEDS ORDERED: CARBOHYDRATES FOR HYPOGLYCEMIA PO PRN (19:52)
[2021-11-05] MEDS ORDERED: LORazepam 0.5 MG in SYRINGE 0.5 ML IV PRN (19:52)
[2021-11-05] MEDS ORDERED: LORazepam 1 MG in SYRINGE 1 ML IV PRN (19:52)
[2021-11-05] MEDS ORDERED: ENOXAPARIN INJ 40 MG/0.4 ML SYR SQ SCH (20:00)
[2021-11-05] MEDS ORDERED: PHENobarbitaL 30 MG TAB PO STA (20:48)
[2021-11-05] MEDS: FOLIC ACID 1 MG TAB PO SCH (21:09)
[2021-11-05] MEDS: TOPIRAMATE 100 MG TAB PO SCH (21:10)
[2021-11-05] MEDS: busPIRone 5 MG TAB PO SCH (21:10)
[2021-11-05] MEDS: PHENobarbitaL 30 MG TAB PO SCH (21:28)
[2021-11-05] MEDS: INSULIN ASPART PER UNIT SC SCH (21:48)
[2021-11-05] MEDS: THIAMINE HCL 300 MG in SODIUM CHLORIDE 0.9% 50 ML IV SCH (22:53)
[2021-11-06 05:52] LABS: Hematocrit (blood only) 38.5 % (40.1-51.0); Hemoglobin 12.8 g/dl (14.0-18.0); Mean Corpuscular Hemoglobin 31.5 pg (25.0-34.0); Mean Corpuscular Hgb Conc 33.2 g/dL (32.0-36.0); Mean Corpuscular Volume 94.8 fL (80.0-100.0); Mean Platelet Volume 10.2 fL (9.4-12.4); Platelet Count 197 K/uL (130-400); RDW Coefficient of Variation 13.2 % (11.5-14.5); RDW Standard Deviation 45.9 fL (36.4-46.3); Red Blood Count 4.06 M/uL (4.63-6.08); White Blood Count 3.96 K/ul (4.8-10.8)
[2021-11-06 06:32] LABS: Albumin Globulin Ratio 1.8 (0.9-2); Albumin Level 3.7 gm/dl (3.4-5.0); Calcium 7.9 mg/dl (8.5-10.1); Creatinine Clr Calc Pharmacy 89.4 ml/min; Est GFR (Non-African American) 94.9 ml/min; Globulin 2.1 gm/dl (2.5-4.0); Magnesium 1.4 mg/dl (1.7-2.4); Potassium 4.1 mmol/L (3.5-5.1); Total Protein 5.8 gm/dl (6.0-8.3)
[2021-11-06 07:23] LABS: Estimated Average Glucose 114 mg/dl; Hemoglobin A1C 5.6 % (4.5-5.6)
--- NOTE | 2021-11-06 08:01 | Hospitalist Progress Note ---
Date of Service November 06, 2021 Assessment & Plan (1) Alcohol abuse: Plan: 66yo M w/ hx of PE, DM2, GERD, and alcohol abuse who presents with request for alcohol detox. (1) Alcohol abuse: Drinks 1 to 1.5 bottles of vodka per day for years. No major hx of withdrawals p er patient. - Given no hx of cirrhosis and lack of other acute medical issues, he seems like a good candidate for phenobarbital taper. With no major acute withdrawal symptoms, will start with PO. * Phenobarbital 90 mg PO TID through 11/06 - today * Phenobarbital 60 mg PO TID on 11/07 * Phenobarbital 30 mg PO TID on 11/08, then stop.- Hold dose if RASS < -1 (ie anything other than a light sleep). Notify provider if skipping doses - Dose-reduced Ativan also entered with AWSS protocol, has not required any as of today ()Bloody Stool -lovenox held in setting of possible GI bleed -EGD 2019 patent billroth I gastroduodostomy, normal study -last colonoscopy 2017 - one polyp removed. internal hemorrhoids + -increased protonix to 40mg BID -H&H q8h -suspect bleed likely hemorrhoidal. consider GI consult if bleeding recurs. (2) Type 2 diabetes mellitus: A1c was 6.3% in 08/2021. - Hold oral meds. - Sliding scale insulin (3) Hypertension: - Continue home lisinopril (4) Hyperlipidemia: - Continue atorvastatin (5) Anxiety: No overt anxiety on my exam today. - Continue home aripiprazole, buspirone, clonidine, escitalopram, and topiramate - Monitor while adding phenobarbital for his alcohol withdrawal (6) Hx of Pulmonary embolism: Was on warfarin, but switched to Lovenox given difficulty with labile INR in setting of heavy drinking. - hold lovenox in setting of bloody stool -SCDs added. reasses in am FENa: crab consistent Code Status: Full DVT PPX: SCDs Case Management: pending Dispo: med/tele Clare Velazco Do PGY 2, FCM (2) Type 2 diabetes mellitus: (3) Hypertension: (4) Hyperlipidemia: (5) Anxiety: (6) Pulmonary embolism: Admission and Anticipated Discharge Date Admission Date: November 05, 2021 Supervising Physician Co-Signing Physician Notes Resident Physician Supervision Note: I independently interviewed and examined the patient and verified the calvillo history and physical, reviewed labs and image studies and agree with resident Dr. Velazco findings and care plan. Subjective Patient seen at bedside, calm comfortable cooperative. He complains of a mild headache, denies any nausea vomitting, SOB CP abd pain diarrhea constipation at this time. Patient describes drinking 0.5L vodka daily, last drink 2 days ago, would like resources on how to quit alcohol. no acute concerns at this time. Review of Systems Review of Systems: Negative fever chills Negative headache dizziness Negative chest pain palpitations SOB Negative nausea vomitting diarrhea constipation Negative numbness tingling rash swelling Physical Exam Constitutional: WD/WN, vitals as above Eyes: PERRL, conjunctivae normal, anicteric sclerae ENMT: external ear and nose normal, oropharynx normal Neck: trachea midline, no thyromegaly Respiratory: normal respiratory effort, lungs clear to auscultation Cardiovascular: RRR, no murmur, no edema Chest (Breasts): Chest: normal inspection of chest Gastrointestinal (Abdomen): normal bowel sounds, soft, nontender, no hepatosplenomegaly Skin: no rashes, warm and dry Results & Data Results & Data ([facility]) Vital Signs (Past 12 Hours) Vital Signs Temp Pulse Pulse Resp BP BP Pulse Ox 11/06/21 07:39 63 16 130/81 97 11/06/21 06:00 69 16 145/84 H 94 11/06/21 04:00 66 17 137/91 95 11/06/21 02:00 58 L 17 135/84 97 11/06/21 01:02 36.7 C 59 L 22 142/88 H 95 11/05/21 23:00 69 24 127/76 95 11/05/21 22:30 76 23 95 11/05/21 21:14 36.8 C 78 24 154/88 H 95 O2 Del Method 11/06/21 07:39 Room Air 11/06/21 06:00 Room Air 11/06/21 04:00 Room Air 11/06/21 02:00 Room Air 11/06/21 01:02 Room Air 11/05/21 23:00 Room Air 11/05/21 22:30 Room Air 11/05/21 21:14 Room Air Diagnostic Findings Laboratory Results WBC 3.96 K/ul (4.8-10.8) L 11/06/21 05:24 RBC 4.06 M/uL (4.63-6.08) L 11/06/21 05:24 Hgb 12.8 g/dl (14.0-18.0) L 11/06/21 05:24 Hct 38.5 % (40.1-51.0) L 11/06/21 05:24 MCV 94.8 fL (80.0-100.0) 11/06/21 05:24 MCH 31.5 pg (25.0-34.0) 11/06/21 05:24 MCHC 33.2 g/dL (32.0-36.0) 11/06/21 05:24 RDW Std Deviation 45.9 fL (36.4-46.3) 11/06/21 05:24 RDW Coeff of Norm 13.2 % (11.5-14.5) 11/06/21 05:24 Plt Count 197 K/uL (130-400) 11/06/21 05:24 MPV 10.2 fL (9.4-12.4) 11/06/21 05:24 Immature Gran % (Auto) 0.2 % 11/05/21 14:11 Neut % (Auto) 38.7 % 11/05/21 14:11 Lymph % (Auto) 51.7 % 11/05/21 14:11 [place] % (Auto) 7.5 % 11/05/21 14:11 Eos % (Auto) 1.5 % 11/05/21 14:11 Baso % (Auto) 0.4 % 11/05/21 14:11 Neut # (Auto) 1.75 K/uL (1.4-6.5) 11/05/21 14:11 Lymph # (Auto) 2.34 K/uL (1.2-3.4) 11/05/21 14:11 [place] # (Auto) 0.34 K/uL (0.24-0.82) 11/05/21 14:11 Eos # (Auto) 0.07 K/uL (0-0.50) 11/05/21 14:11 Baso # (Auto) 0.02 K/uL (0-0.2) 11/05/21 14:11 Immature Gran # (Auto) 0.01 K/uL (0.00-0.02) 11/05/21 14:11 Sodium 137 mmol/L (136-145) 11/06/21 05:24 Potassium 4.1 mmol/L (3.5-5.1) 11/06/21 05:24 Chloride 102 mmol/L (98-107) 11/06/21 05:24 Carbon Dioxide 25 mmol/L (21-32) 11/06/21 05:24 Anion Gap 10 (3-11) 11/06/21 05:24 BUN 15 mg/dl (6-23) 11/06/21 05:24 Creatinine 0.75 mg/dl (0.6-1.4) D 11/06/21 05:24 Est Cr Clr Drug Dosing 89.4 ml/min 11/06/21 05:24 Est GFR ( Amer) 110.0 ml/min 11/06/21 05:24 Est GFR (Non-Af Amer) 94.9 ml/min 11/06/21 05:24 BUN/Creatinine Ratio 20.0 (10-20) 11/06/21 05:24 Glucose 64 mg/dl (70-99(Fasting)) L 11/06/21 05:24 POC Glucose 258 mg/dl (70-99) H 11/06/21 11:21 Estimat Average Glucose 114 mg/dl 11/06/21 05:24 Hemoglobin A1c 5.6 % (4.5-5.6) 11/06/21 05:24 Calcium 7.9 mg/dl (8.5-10.1) L 11/06/21 05:24 Magnesium 1.4 mg/dl (1.7-2.4) L 11/06/21 05:24 Total Bilirubin 1.0 mg/dl (0.2-1.0) D 11/06/21 05:24 Direct Bilirubin 0.1 mg/dl (0-0.2) 11/05/21 14:11 AST 46 U/L (13-39) H 11/06/21 05:24 ALT 65 U/L (7-52) H 11/06/21 05:24 Alkaline Phosphatase 48 U/L (34-104) 11/06/21 05:24 Total Protein 5.8 gm/dl (6.0-8.3) L 11/06/21 05:24 Albumin 3.7 gm/dl (3.4-5.0) 11/06/21 05:24 Globulin 2.1 gm/dl (2.5-4.0) L 11/06/21 05:24 Albumin/Globulin Ratio 1.8 (0.9-2) 11/06/21 05:24 Lipase 45 U/L (11-82) 11/05/21 14:11 Urine Color Yellow 11/05/21 14:50 Urine Appearance Clear (Clear) 11/05/21 14:50 Urine pH 5.0 (4.5-7.5) 11/05/21 14:50 Ur Specific Advance 1.017 (1.000-1.030) 11/05/21 14:50 Urine Protein 1+ (Negative) H 11/05/21 14:50 Urine Glucose (UA) Negative (Negative) 11/05/21 14:50 Urine Ketones Trace (Negative) H 11/05/21 14:50 Urine Blood Trace (Negative) H 11/05/21 14:50 Urine Nitrite Negative (Negative) 11/05/21 14:50 Urine Bilirubin Negative (Negative) 11/05/21 14:50 Urine Urobilinogen Negative (Negative) 11/05/21 14:50 Ur Leukocyte Esterase Negative (Negative) 11/05/21 14:50 Urine WBC (Auto) 1-5 /hpf (0-5) 11/05/21 14:50 Urine RBC (Auto) 0-4 /hpf (0-4) 11/05/21 14:50 U Hyaline Cast (Auto) 10-30 /lpf (0-5) H 11/05/21 14:50 U Epithel Cells (Auto) >30 /lpf (0-5) H 11/05/21 14:50 Urine Bacteria (Auto) Negative (Negative) 11/05/21 14:50 Urine Opiates Screen Neg (Neg) 11/05/21 14:50 Ur Methadone, Qual Neg (Neg) 11/05/21 14:50 Urine Barbiturates Neg (Neg) 11/05/21 14:50 Ur Phencyclidine (PCP) Neg (Neg) 11/05/21 14:50 U Amphetamin/Meth Scrn Neg (Neg) 11/05/21 14:50 MDMA (Ecstasy) Screen Neg (Neg) 11/05/21 14:50 U Benzodiazepines Scrn Neg (Neg) 11/05/21 14:50 Ur Cocaine Metabolite Neg (Neg) 11/05/21 14:50 U Marijuana (THC) Screen Neg (Neg) 11/05/21 14:50 Ethyl Alcohol mg/dL 200.7 mg/dl (<10.0) H 11/05/21 14:08 SARS-CoV-2, RNA, NAAT NEGATIVE (NEGATIVE) 11/05/21 15:[address] 11/05/21 14:21 CT cervical spine wo con CLINICAL HISTORY: fall . Neck pain COMPARISON STUDY: 09/12/2021 CT DOSE: 1091.96 mGy.cm TECHNIQUE: Standard CT of the Cervical Spine was performed without IV contrast. A dose lowering technique was utilized adhering to the principles of ALARA. FINDINGS: Bones: There is again a prominent torticollis, convex to the left. The bones are osteopenic. There is no evidence for an acute fracture or malalignment. The heights of the vertebral bodies are maintained. The vertebral bodies are in anatomic alignment. The odontoid is intact. Degenerative changes are seen at the atlantoaxial articulation. Disc spaces: There is again moderate to marked disc space narrowing from C2 through C7 with endplate cirrhosis and osteophyte formation. Apophyseal joints: Degenerative apophyseal joint disease is seen greater on the left than right. Soft tissues: The prevertebral soft tissues are within normal limits. IMPRESSION: 1. Osteopenia with persistent torticollis 2. No acute osseous pathology. 3. Degenerative disc and degenerative joint disease. ACT 112: Negative or not required by law. Electronically signed by: Yasir Rg M.D. 11/05/2021 3:[address] 11/05/21 14:21 CT head/brain wo con CLINICAL HISTORY: fall . Pain COMPARISON STUDY: 09/12/2021 CT DOSE: TECHNIQUE: Standard CT of the Brain was performed without IV contrast. A dose lowering technique was utilized adhering to the principles of ALARA. FINDINGS: Extraaxial space: There is no evidence for subdural hematoma. There are no extra-axial fluid collections. Ventricles and cisterns: The ventricles are mildly dilated bilaterally. There is no evidence for midline shift or mass effect. Parenchyma: There is no subarachnoid or intraparenchymal hemorrhage. There is no evidence for an acute infarct or cerebral edema. There is mild cerebral cortical atrophy and decreased attenuation in the periventricular white matter representing remote small vessel disease. There are no gross mass lesions. Osseous structures: There is no evidence for an acute fracture. The visualized paranasal sinuses are clear. The mastoid air cells are clear bilaterally. Soft tissues: There is no evidence for focal soft tissue swelling. IMPRESSION: 1. No acute intracerebral pathology. 2. Mild cerebral cortical atrophy and remote small vessel disease are again seen. ACT 112: Negative or not required by law. Electronically signed by: Yasir Rg M.D. 11/05/2021 3:00 PM Medications Administered Current Inpatient Medications Acetaminophen (Acetaminophen 500 Mg Tab) 500 mg PO Q4H PRN PRN Reason: pain Stop: 12/05/21 19:51 Aripiprazole (Aripiprazole 1 Mg/Ml Oral Soln 150 Ml Btl) 2 mg PO QAM BOB Stop: 12/06/21 09:44 Last Admin: 11/06/21 11:06 Dose: 2 mg Atorvastatin Calcium (Atorvastatin 10 Mg Tab) 10 mg PO DAILY BOB Stop: 12/06/21 08:59 Last Admin: 11/06/21 09:23 Dose: 10 mg Buspirone HCl (Buspirone 5 Mg Tab) 10 mg PO BID BOB Stop: 12/05/21 20:59 Last Admin: 11/06/21 09:23 Dose: 10 mg Clonidine HCl (Clonidine Hcl 0.1 Mg Tab) 0.1 mg PO DAILY BOB Stop: 12/06/21 08:59 Last Admin: 11/06/21 09:22 Dose: 0.1 mg Dextrose (Dextrose 50% 50 Ml Syringe) 25 - 50 ml IV UD PRN; Protocol PRN Reason: Hypoglycemia Protocol Stop: 12/05/21 19:51 Enoxaparin Sodium (Enoxaparin Inj 40 Mg/0.4 Ml Syr) 40 mg SQ Q24H BBO Stop: 12/05/21 19:59 Last Admin: 11/05/21 21:08 Dose: 40 mg Escitalopram Oxalate (Escitalopram Oxalate 20 Mg Tab) 20 mg PO QAM BOB Stop: 12/06/21 08:59 Last Admin: 11/06/21 09:22 Dose: 20 mg Folic Acid (Folic Acid 1 Mg Tab) 1 mg PO QAM BOB Stop: 12/05/21 19:51 Last Admin: 11/06/21 09:23 Dose: 1 mg Glucagon (Glucagon For Inj 1 Mg Vial) 1 mg SQ UD PRN; Protocol PRN Reason: Hypoglycemia Protocol Stop: 12/05/21 19:51 Glucose (Glucose 40% Gel 15 Gm Tube) 15 - 30 gm PO UD PRN; Protocol PRN Reason: Hypoglycemia Protocol Stop: 12/05/21 19:51 Glucose (Glucose 10 Tab/Tube) 4 - 8 tab PO UD PRN; Protocol PRN Reason: Hypoglycemia Treatment Stop: 12/05/21 19:51 Lorazepam 0.5 mg/ Syringe 0.75 mls @ 2 mls/min IV UD PRN; Protocol PRN Reason: EtOH Withdrawal AWSS Score 6,7 Stop: 12/05/21 19:51 Lorazepam 1 mg/ Syringe 1.5 mls @ 2 mls/min IV UD PRN; Protocol PRN Reason: EtOH Withdrawal AWSS Score 8,9 Stop: 12/05/21 19:51 Lorazepam 2 mg/ Syringe 2.5 mls @ 2 mls/min IV ONCE PRN; Protocol PRN Reason: EtOH Withdrawal AWSS Score 10 & above Stop: 12/05/21 19:51 Thiamine HCl 300 mg/ Sodium (Chloride) 53 mls @ 210 mls/hr IV DAILY BOB Stop: 12/05/21 20:29 Last Infusion: 11/06/21 11:57 Dose: Infused Insulin Aspart (Insulin Aspart Per Unit) 0 units SC ACHS BOB Stop: 12/05/21 20:59 Last Admin: 11/06/21 12:18 Dose: 5 units Lisinopril (Lisinopril 2.5 Mg Tab) 2.5 mg PO DAILY BOB Stop: 12/06/21 08:59 Last Admin: 11/06/21 09:22 Dose: 2.5 mg Magnesium Oxide (Magnesium Oxide 400 Mg Tab) 400 mg PO BID BOB Stop: 11/06/21 21:01 Last Admin: 11/06/21 09:22 Dose: 400 mg Miscellaneous (Carbohydrates For Hypoglycemia ) 15 - 30 gm PO UD PRN PRN Reason: Hypoglycemia Protocol Stop: 12/05/21 19:51 Ondansetron HCl (Ondansetron Inj 2 Mg/Ml 2 Ml Vial) 4 mg IV Q4H PRN PRN Reason: Nausea Stop: 12/05/21 19:51 Pantoprazole Sodium (Pantoprazole 40 Mg Tab) 40 mg PO BID BOB Stop: 12/06/21 20:59 Phenobarbital (Phenobarbital 30 Mg Tab) 90 mg PO TID BOB Stop: 11/06/21 21:01 Last Admin: 11/06/21 09:31 Dose: 90 mg Phenobarbital (Phenobarbital 30 Mg Tab) 60 mg PO TID BOB Stop: 11/07/21 21:01 Phenobarbital (Phenobarbital 30 Mg Tab) 30 mg PO TID BOB Stop: 11/08/21 21:01 Topiramate (Topiramate 100 Mg Tab) 100 mg PO PM BOB Stop: 12/05/21 20:59 Last Admin: 11/05/21 21:10 Dose: 100 mg Resident Activity Tracking Resident Involvement: Resident Care Provided Care Provided: Adult Hospital Medicine
[2021-11-06] MEDS ORDERED: PANTOprazole 40 MG TAB PO SCH (09:00)
[2021-11-06] MEDS: lisinopril 2.5 MG TAB PO SCH (09:22)
[2021-11-06] MEDS: MAGNESIUM OXIDE 400 MG TAB PO SCH ×2 (09:22→20:16)
[2021-11-06] MEDS: ESCITALOPRAM OXALATE 20 MG TAB PO SCH (09:22)
[2021-11-06] MEDS: cloNIDine HCL 0.1 MG TAB PO SCH (09:22)
[2021-11-06] MEDS: ATORVASTATIN 10 MG TAB PO SCH (09:23)
[2021-11-06] MEDS: busPIRone 5 MG TAB PO SCH ×2 (09:23→20:17)
[2021-11-06] MEDS: FOLIC ACID 1 MG TAB PO SCH (09:23)
[2021-11-06] MEDS: PHENobarbitaL 30 MG TAB PO SCH ×3 (09:31→20:16)
[2021-11-06] MEDS: INSULIN ASPART PER UNIT SC SCH ×4 (09:31→20:25)
[2021-11-06] MEDS: ARIPIprazole 1 MG/ML ORAL SOLN 150 ML BTL PO SCH (11:06)
[2021-11-06] MEDS: THIAMINE HCL 300 MG in SODIUM CHLORIDE 0.9% 50 ML IV SCH (11:40)
[2021-11-06 13:19] LABS: Hematocrit (blood only) 39.5 % (40.1-51.0); Hemoglobin 13.2 g/dl (14.0-18.0)
[2021-11-06] MEDS: TOPIRAMATE 100 MG TAB PO SCH (20:16)
[2021-11-06] MEDS: PANTOprazole 40 MG TAB PO SCH (20:17)
[2021-11-06 20:49] LABS: Hematocrit (blood only) 38.1 % (40.1-51.0); Hemoglobin 12.7 g/dl (14.0-18.0)
[2021-11-07 06:19] LABS: Hematocrit (blood only) 37.4 % (40.1-51.0); Hemoglobin 12.7 g/dl (14.0-18.0); Mean Corpuscular Hemoglobin 32.1 pg (25.0-34.0); Mean Corpuscular Volume 94.4 fL (80.0-100.0); Platelet Count 175 K/uL (130-400); RDW Coefficient of Variation 13.2 % (11.5-14.5); RDW Standard Deviation 45.7 fL (36.4-46.3); Red Blood Count 3.96 M/uL (4.63-6.08)
[2021-11-07 06:43] LABS: Albumin Globulin Ratio 1.6 (0.9-2); Albumin Level 3.6 gm/dl (3.4-5.0); BUN Creatinine Ratio 18.7 (10-20); Bilirubin,Total 0.8 mg/dl (0.2-1.0); Calcium 8.3 mg/dl (8.5-10.1); Creatinine Clr Calc Pharmacy 73.6 ml/min; Est GFR (African American) 100.7 ml/min; Est GFR (Non-African American) 86.9 ml/min; Globulin 2.2 gm/dl (2.5-4.0); Magnesium 1.6 mg/dl (1.7-2.4); Potassium 4.3 mmol/L (3.5-5.1); Total Protein 5.8 gm/dl (6.0-8.3)
--- NOTE | 2021-11-07 07:05 | Hospitalist Progress Note ---
Date of Service November 07, 2021 Assessment & Plan (1) Alcohol abuse: Plan: 66yo M w/ hx of PE, DM2, GERD, and alcohol abuse who presents with request for alcohol detox. (1) Alcohol abuse: Drinks 1 to 1.5 bottles of vodka per day for years. No major hx of withdrawals p er patient. - Given no hx of cirrhosis and lack of other acute medical issues, he seems like a good candidate for phenobarbital taper. With no major acute withdrawal symptoms, will start with PO. * Phenobarbital 90 mg PO TID through 11/06 * Phenobarbital 60 mg PO - received two doses and became hypotensive and bradycardic in the afternoon. - stop phenobarb - Ativan prn per AWSS protocol, ()Bloody Stool - resolved -lovenox held in setting of possible GI bleed -EGD 2019 patent billroth I gastroduodostomy, normal study -last colonoscopy 2017 - one polyp removed. internal hemorrhoids + -increased protonix to 40mg BID -H&H stable 12.7 -suspect bleed likely hemorrhoidal. consider GI consult if bleeding recurs. -no additional bloody stool noted, no discomfort noted Hypotensive episode - ? sec to phenobarb. will d/c - no concern of hemorrhage. - NSS bolus. - hold lisinopril (2) Type 2 diabetes mellitus: A1c was 6.3% in 08/2021. - Hold oral meds. - Sliding scale insulin (3) Hypertension: - hold lisinopril (4) Hyperlipidemia: - Continue atorvastatin (5) Anxiety: No overt anxiety on my exam today. - Continue home aripiprazole, buspirone, clonidine, escitalopram, and topiramate - Monitor while adding phenobarbital for his alcohol withdrawal (6) Hx of Pulmonary embolism: Was on warfarin, but switched to Lovenox given difficulty with labile INR in setting of heavy drinking. - hold lovenox in setting of bloody stool -SCDs added FENa: carb consistent Code Status: Full DVT PPX: SCDs Case Management: pending Dispo: med/tele Clare Velazco Do PGY 2, FCM (2) Type 2 diabetes mellitus: (3) Hypertension: (4) Hyperlipidemia: (5) Anxiety: (6) Pulmonary embolism: Admission and Anticipated Discharge Date Admission Date: November 05, 2021 Supervising Physician Co-Signing Physician Notes Resident Physician Supervision Note: I independently interviewed and examined the patient and verified the calvillo history and physical, reviewed labs and image studies and agree with resident Dr. Velazco findings and care plan. Subjective Patient seen at bedside, calm comfortable cooperative. He denies any pain SOB, mild dizziness turning his head too quickly, good appetite no nausea vomitting. Patient understands we are currently tapering the phenobarbatal for his alcohol withdrawal. No acute concerns at this time. Per nursing no additional bloody stool noted. Review of Systems Review of Systems: Negative fever chills Negative headache dizziness Negative chest pain palpitations SOB Negative nausea vomitting diarrhea constipation Negative numbness tingling rash swelling Physical Exam Constitutional: WD/WN, vitals as above Eyes: PERRL, conjunctivae normal, anicteric sclerae ENMT: external ear and nose normal, oropharynx normal Neck: trachea midline, no thyromegaly Respiratory: normal respiratory effort, lungs clear to auscultation Cardiovascular: RRR, no murmur, no edema Chest (Breasts): Chest: normal inspection of chest Gastrointestinal (Abdomen): normal bowel sounds, soft, nontender, no hepatosplenomegaly Percussion/Palpation: + abdomen firm Skin: no rashes, warm and dry Results & Data Results & Data ([facility]) Vital Signs (Past 12 Hours) Vital Signs Temp Pulse Pulse Resp BP Pulse Ox O2 Del Method 11/07/21 04:23 36.5 C 68 18 114/74 94 Room Air 11/06/21 23:01 36.6 C 62 18 111/74 97 Room Air 11/06/21 23:16 71 Medications Administered Current Inpatient Medications Acetaminophen (Acetaminophen 500 Mg Tab) 500 mg PO Q4H PRN PRN Reason: pain Stop: 12/05/21 19:51 Last Admin: 11/07/21 08:37 Dose: 500 mg Aripiprazole (Aripiprazole 1 Mg/Ml Oral Soln 150 Ml Btl) 2 mg PO QAM BOB Stop: 12/06/21 09:44 Last Admin: 11/07/21 08:35 Dose: 2 mg Atorvastatin Calcium (Atorvastatin 10 Mg Tab) 10 mg PO DAILY BOB Stop: 12/06/21 08:59 Last Admin: 11/07/21 08:35 Dose: 10 mg Buspirone HCl (Buspirone 5 Mg Tab) 10 mg PO BID BOB Stop: 12/05/21 20:59 Last Admin: 11/07/21 08:35 Dose: 10 mg Clonidine HCl (Clonidine Hcl 0.1 Mg Tab) 0.1 mg PO DAILY BOB Stop: 12/06/21 08:59 Last Admin: 11/07/21 08:33 Dose: 0.1 mg Dextrose (Dextrose 50% 50 Ml Syringe) 25 - 50 ml IV UD PRN; Protocol PRN Reason: Hypoglycemia Protocol Stop: 12/05/21 19:51 Enoxaparin Sodium (Enoxaparin Inj 40 Mg/0.4 Ml Syr) 40 mg SQ Q24H BOB Stop: 12/05/21 19:59 Last Admin: 11/05/21 21:08 Dose: 40 mg Escitalopram Oxalate (Escitalopram Oxalate 20 Mg Tab) 20 mg PO QAM BOB Stop: 12/06/21 08:59 Last Admin: 11/07/21 08:35 Dose: 20 mg Folic Acid (Folic Acid 1 Mg Tab) 1 mg PO QAM BOB Stop: 12/05/21 19:51 Last Admin: 11/07/21 08:35 Dose: 1 mg Glucagon (Glucagon For Inj 1 Mg Vial) 1 mg SQ UD PRN; Protocol PRN Reason: Hypoglycemia Protocol Stop: 12/05/21 19:51 Glucose (Glucose 40% Gel 15 Gm Tube) 15 - 30 gm PO UD PRN; Protocol PRN Reason: Hypoglycemia Protocol Stop: 12/05/21 19:51 Glucose (Glucose 10 Tab/Tube) 4 - 8 tab PO UD PRN; Protocol PRN Reason: Hypoglycemia Treatment Stop: 12/05/21 19:51 Lorazepam 0.5 mg/ Syringe 0.75 mls @ 2 mls/min IV UD PRN; Protocol PRN Reason: EtOH Withdrawal AWSS Score 6,7 Stop: 12/05/21 19:51 Lorazepam 1 mg/ Syringe 1.5 mls @ 2 mls/min IV UD PRN; Protocol PRN Reason: EtOH Withdrawal AWSS Score 8,9 Stop: 12/05/21 19:51 Lorazepam 2 mg/ Syringe 2.5 mls @ 2 mls/min IV ONCE PRN; Protocol PRN Reason: EtOH Withdrawal AWSS Score 10 & above Stop: 12/05/21 19:51 Thiamine HCl 300 mg/ Sodium (Chloride) 53 mls @ 210 mls/hr IV DAILY [facility] Stop: 12/05/21 20:29 Last Infusion: 11/07/21 08:50 Dose: Infused Insulin Aspart (Insulin Aspart Per Unit) 0 units SC ACHS BOB Stop: 12/05/21 20:59 Last Admin: 11/07/21 08:33 Dose: 3 units Lisinopril (Lisinopril 2.5 Mg Tab) 2.5 mg PO DAILY BOB Stop: 12/06/21 08:59 Last Admin: 11/07/21 08:35 Dose: 2.5 mg Miscellaneous (Carbohydrates For Hypoglycemia ) 15 - 30 gm PO UD PRN PRN Reason: Hypoglycemia Protocol Stop: 12/05/21 19:51 Ondansetron HCl (Ondansetron Inj 2 Mg/Ml 2 Ml Vial) 4 mg IV Q4H PRN PRN Reason: Nausea Stop: 12/05/21 19:51 Pantoprazole Sodium (Pantoprazole 40 Mg Tab) 40 mg PO BID BOB Stop: 12/06/21 20:59 Last Admin: 11/07/21 08:35 Dose: 40 mg Phenobarbital (Phenobarbital 30 Mg Tab) 60 mg PO TID BOB Stop: 11/07/21 21:01 Last Admin: 11/07/21 08:34 Dose: 60 mg Phenobarbital (Phenobarbital 30 Mg Tab) 30 mg PO TID [facility] Stop: 11/08/21 21:01 Topiramate (Topiramate 100 Mg Tab) 100 mg PO PM [facility] Stop: 12/05/21 20:59 Last Admin: 11/06/21 20:16 Dose: 100 mg Resident Activity Tracking Resident Involvement: Resident Care Provided Care Provided: Adult Hospital Medicine
[2021-11-07] MEDS: cloNIDine HCL 0.1 MG TAB PO SCH (08:33)
[2021-11-07] MEDS: INSULIN ASPART PER UNIT SC SCH ×4 (08:33→20:51)
[2021-11-07] MEDS: PHENobarbitaL 30 MG TAB PO SCH ×2 (08:34→13:49)
[2021-11-07] MEDS: THIAMINE HCL 300 MG in SODIUM CHLORIDE 0.9% 50 ML IV SCH (08:34)
[2021-11-07] MEDS: FOLIC ACID 1 MG TAB PO SCH (08:35)
[2021-11-07] MEDS: PANTOprazole 40 MG TAB PO SCH ×2 (08:35→20:50)
[2021-11-07] MEDS: lisinopril 2.5 MG TAB PO SCH (08:35)
[2021-11-07] MEDS: ARIPIprazole 1 MG/ML ORAL SOLN 150 ML BTL PO SCH (08:35)
[2021-11-07] MEDS: busPIRone 5 MG TAB PO SCH ×2 (08:35→20:51)
[2021-11-07] MEDS: ATORVASTATIN 10 MG TAB PO SCH (08:35)
[2021-11-07] MEDS: ESCITALOPRAM OXALATE 20 MG TAB PO SCH (08:35)
[2021-11-07] MEDS ORDERED: SODIUM CHLORIDE 0.9% 1000ML 1,000 ML IV ONE (14:39)
[2021-11-07] MEDS: TOPIRAMATE 100 MG TAB PO SCH (20:50)
[2021-11-07] MEDS: MAGNESIUM OXIDE 400 MG TAB PO SCH (20:50)
--- NOTE | 2021-11-08 07:16 | Discharge Summary ---
Date of Service November 08, 2021 Admission HPI Per Admitting Provider 66yo M w/ hx of PE, DM2, GERD, and alcohol abuse who presents with request for alcohol detox. The patient reports he drinks 1 to 1 1/2 bottles of vodka per day. He has had this approximate level of alcohol intake for years. He does not remember his last sustained period of sobriety. He has never had alcohol withdrawal seizures or DTs. He reports that he will sometimes get tremors and has felt "uncomfortable" in the past when going through withdrawals. Admission Exam Per Admitting Provider Constitutional: WD/WN, vitals as above Eyes: EOM intact bilaterally; no conjunctival abnormality ENMT: external ear and nose normal, oropharynx normal Neck: trachea midline, no thyromegaly normal visual inspection Respiratory: normal respiratory effort, lungs clear to auscultation no r espiratory distress Cardiovascular: RRR, no murmur, no edema Gastrointestinal (Abdomen): Inspection/Auscultation: abdomen normal to insp ection; abdomen not distended Musculoskeletal: no cyanosis or clubbing, extremities motor strength 5/5 Skin: no rashes, warm and dry Neurologic: moves all extremities and awake No tremor with outstretched arms. Mild tongue fasciculations. Psychiatric: Orientation: alert, oriented to person and cooperative Principal Diagnosis Alcohol Withdrawal Discharge Exam Constitutional WD/WN, vitals as above Eyes PERRL, conjunctivae normal, anicteric sclerae ENMT external ear and nose normal, oropharynx normal Neck trachea midline, no thyromegaly Respiratory normal respiratory effort, lungs clear to auscultation Cardiovascular RRR, no murmur, no edema Chest (Breasts) Chest: normal inspection of chest Gastrointestinal (Abdomen) normal bowel sounds, soft, nontender, no hepatosplenomegaly Percussion/Palpation: + abdomen firm Skin no rashes, warm and dry Discharge Data Allergies Allergy/AdvReac Type Severity Reaction Status Date / Time No Known Drug Allergies Allergy Unknown Verified 11/05/21 15:02 Consultations 11/05/21 15:49 ED Decision to Admit Stat Ordered Studies 11/05/21 14:21 CT cervical spine wo con Stat CT head/brain wo con Stat Hospital Course (1) Alcohol abuse: 66yo M w/ hx of PE, DM2, GERD, and alcohol abuse who presents with request for alcohol detox. (1) Alcohol abuse: Drinks 1 to 1.5 bottles of vodka per day for years. No major hx of withdrawals per patient. Given no hx of cirrhosis and lack of other acute medical issues, patient started on phenobarbital taper PO. * Phenobarbital 90 mg PO TID through 11/06 * Phenobarbital 60 mg PO - received two doses and became hypotensive and bradycardic in the afternoon. Phenobarbital dc'd, patient continues to be bradycardic, asymptomatic no complaints. Placed on AWSS protocol, did not require ativan across admission ()Bloody Stool - resolved Lovenox held in setting of possible GI bleed. EGD 2019 patent billroth I gastroduodostomy, normal study. Last colonoscopy 2017 - one polyp removed. internal hemorrhoids + . Increased protonix to 40mg BID. H&H stable 12.7. suspect bleed likely hemorrhoidal. No additional bloody stool noted, no discomfort noted. Patient resumed lovenox. ()Hypotensive episode - resolved Possible 2/2 to phenobarb. will d/c. Improved with 1L NSS bolus. No concern of hemorrhage. Lisinopril held ()Bradycardia Patient remains sinus bradycardic in 50's since 11/07, phenobarbital dc'd, floresita ins asymptomatic (2) Type 2 diabetes mellitus: A1c was 6.3% in 08/2021. May resume home meds (3) Hypertension: hold lisinopril (4) Hyperlipidemia: Continue atorvastatin (5) Anxiety: No overt anxiety on my exam today. Continue home aripiprazole, buspirone, clonidine, escitalopram, and topiramate (6) Hx of Pulmonary embolism: Was on warfarin, but switched to Lovenox given difficulty with labile INR in setting of heavy drinking. Lovonox initially held given concern for bleed, may resume. (2) Type 2 diabetes mellitus: (3) Hypertension: (4) Hyperlipidemia: (5) Anxiety: (6) Pulmonary embolism: Total Time Total Time Spent Total Time Spent (In Minutes): see attending attestation Discharge Plan Discharge Items Patient Disposition: Home - Self-Care Reason For Visit: ALCOHOL DETOX Discharge Diagnosis: Alcohol Withdrawal Activity: Per Instructions section Non-emergency contact: Primary Care Provider Call non-emergency contact if: you have any medication questions, your symptoms worsen, your pain is not controlled and you have a fever Follow-up/Referrals: Jose Norris, [Primary Care Provider] - 11/15/21 2:45 pm Diet: Regular Addtl Attending Provider Instructions: You were admitted to the hospital for Alcohol Withdrawal. You were treated on a seizure preventing medication called Phenobarbital. On this medication you developed lower heart rate and blood pressures, so the medication was discontinued. Please follow up with your PCP in 1 week and continue to monitor your heart rate. At this time you are not experiencing any adverse symptoms. In the event you do become lightheaded, feel increased weakness, or have difficulty breathing, please contact your PCP or return to the ED. You were seen by case management in the hospital, and recommended several outpatient resources for alcohol cessation. Please be sure to investigate each option to see which would be the best fit for you. A discharge summary will be sent to your primary care physician to ensure continuity of care. Please bring this discharge summary with you to your next office appointment so that your provider can review it at that time. Follow-up appointments: Make a follow-up appointment with your PCP within the next week. It is very important that you follow up with them shortly after discharge from the hospital. Keep all your follow-up appointments as already scheduled. If you cannot make an appointment, notify your provider. Medications: Your medication list has been reviewed and reconciled upon discharge to ensure accuracy and continuity of care. An updated list of all your medications is included with your hospital discharge paperwork. Please review this list closely, and make note of any changes. Do not take your Lisinopril at this time, given that your blood pressure is on the lower side. Please check with your PCP to decide whether this medication should be resumed. Take your medications as instructed; do not skip a dose of your medicines. Make sure all of your doctors know every medicine you are taking (including [id number] medicines, vitamins, and supplements). Call your primary care provider before taking any new medicines (including [id number] medicines, vitamins, and supplements), because some of these may interact with your current medications, or may make your symptoms worse. Tell your primary care provider if you cannot afford your medications. CONTACT YOUR PRIMARY CARE PROVIDER if you experience any of the following: Weakness, fatigue, difficulty breathing Lightheadedness, loss of consciousness Difficulty following your treatment plan, or difficulty taking medications CALL 911 OR GO TO THE EMERGENCY DEPARTMENT if you experience any of the following: Sudden, severe abdominal pain or nausea/vomiting Severe chest pain, or chest pain that radiates (moves) to your jaw or arm Sudden, severe shortness of breath or difficulty breathing Thank you for allowing us to participate in your care. Pending Studies at Discharge: No Stand-Alone Forms: My [facility], Smoking Cessation Medications and DC Order Prescriptions: Continued acetaminophen [Tylenol Extra Strength] 500 mg tablet 1,000 mg PO DAILY PRN (Reason: pain) multivitamin Tablet 1 tab PO QAM topiramate 100 mg tablet 100 mg PO PM enoxaparin 40 mg/0.4 mL syringe 40 mg subcut Q24H Qty: 30 1RF metformin 500 mg tablet extended release 24 hr 1,000 mg PO BID Qty: 360 3RF atorvastatin 10 mg tablet 10 mg PO DAILY Qty: 90 3RF clonidine HCl 0.1 mg tablet 0.1 mg PO DAILY buspirone 10 mg tablet 10 mg PO BID escitalopram oxalate 20 mg tablet 20 mg PO QAM glipizide 5 mg tablet extended release 24 hr 5 mg PO PM pantoprazole 40 mg tablet,delayed release (DR/EC) 40 mg PO QAM aripiprazole 2 mg tablet 2 mg PO QAM Discontinued lisinopril 2.5 mg tablet 2.5 mg PO DAILY Qty: 90 3RF Discharge Orders: Discharge Order (Routine); Ordered 11/08/21 Ordered By: Clare Velazco Admission Data Admit Date/Time: 11/05/21 19:46 Attending Provider: Jj Worrell Admit Provider: Víctor Vivas Primary Care Provider: Jose Norris Other Providers: Víctor Vivas Other Interventions: Discharge Summary Assessment (RN) Last Done: 11/08/21 11:51 Supervising Physician Co-Signing Physician Notes Patient seen and examined independently of PGY-2 Dr. Velazco. Agree with history, exam findings, assessment and plan of care as outlined. In brief, Mr. Campuzano is a 66 year old male with history of PE, DM2, GERD and alcohol use disorder admitted for alcohol detox. No complaints today. Feels that he can manage at home. His is very supp ortive. He has a stepdaughter that lives in [place]. Feels motivated to engage with community programs/resources for sustained remission and abstinence. VS and nursing notes reviewed. Well appearing. Restricted affect. Limited insight. No tremulousness. Heart with regular rate and rhythm. No edema. Lungs are clear to auscultation throughout. Labs and imaging reviewed. 1. Alcohol use disorder. 1-1 bottles of vodka per day. Stopped phenobarbital taper due to hypotension and bradycardia. Ativan per AWSS. Past the [place] for DTs and has been stable. He is not interested in medication assistance for sustained remission. He has attended AA and found it helpful. He has contacts for community resources and programs. 2. Blood in stool. Resolved. Increased protonix to 40mg BID. H&H stable. 3. DM2. Sliding scale insulin. Resume home medications on discharge. 4. Hypertension, but with episode of hypotension. Holding home lisinopril--do not resume on discharge. 5. Anxiety. Continue home aripiprazole, buspar, clonidine, escitalopram, and topiramate. 6. Hx of PE. Labile INR in the setting of ETOH consumption. Holding lovenox for now due to recent GI bleeding. Dispo: discharge home today. I personally spent 25 minutes dicharge planning for this patient. Resident Activity Tracking Resident Involvement: Resident Care Provided Care Provided: Adult Hospital Medicine
[2021-11-08 07:29] LABS: Hematocrit (blood only) 36.8 % (40.1-51.0); Hemoglobin 12.3 g/dl (14.0-18.0); Mean Corpuscular Hemoglobin 31.9 pg (25.0-34.0); Mean Corpuscular Hgb Conc 33.4 g/dL (32.0-36.0); Mean Corpuscular Volume 95.6 fL (80.0-100.0); Mean Platelet Volume 9.8 fL (9.4-12.4); Platelet Count 167 K/uL (130-400); RDW Coefficient of Variation 13.2 % (11.5-14.5); RDW Standard Deviation 46.5 fL (36.4-46.3); Red Blood Count 3.85 M/uL (4.63-6.08); White Blood Count 3.99 K/ul (4.8-10.8)
[2021-11-08 07:59] LABS: BUN Creatinine Ratio 21.6 (10-20); Calcium 8.6 mg/dl (8.5-10.1); Creatinine Clr Calc Pharmacy 69.1 ml/min; Est GFR (African American) 93.2 ml/min; Est GFR (Non-African American) 80.5 ml/min; Potassium 4.1 mmol/L (3.5-5.1)
[2021-11-08] MEDS: ESCITALOPRAM OXALATE 20 MG TAB PO SCH (08:00)
[2021-11-08] MEDS: FOLIC ACID 1 MG TAB PO SCH (08:00)
[2021-11-08] MEDS: PANTOprazole 40 MG TAB PO SCH (08:00)
[2021-11-08] MEDS: ATORVASTATIN 10 MG TAB PO SCH (08:00)
[2021-11-08] MEDS: busPIRone 5 MG TAB PO SCH (08:00)
[2021-11-08] MEDS: MAGNESIUM OXIDE 400 MG TAB PO SCH (08:00)
[2021-11-08] MEDS: ARIPIprazole 1 MG/ML ORAL SOLN 150 ML BTL PO SCH (08:01)
[2021-11-08] MEDS: THIAMINE HCL 300 MG in SODIUM CHLORIDE 0.9% 50 ML IV SCH (08:07)
[2021-11-08] MEDS: INSULIN ASPART PER UNIT SC SCH ×2 (08:09→12:06)
[2021-11-08] MEDS: cloNIDine HCL 0.1 MG TAB PO SCH (08:09)
[2021-11-08] MEDS ORDERED: PHENobarbitaL 30 MG TAB PO SCH (09:00)
--- NOTE | 2021-11-08 21:05 | Electrocardiogram Report ---
Test Reason : Blood Pressure : / mmHG Vent. Rate : 059 BPM Atrial Rate : 059 BPM P-R Int : 312 ms QRS Dur : 082 ms QT Int : 408 ms P-R-T Axes : 081 066 045 degrees QTc Int : 403 ms Sinus bradycardia with 1st degree A-V block with Blocked Premature atrial complexes Otherwise normal ECG When compared with ECG of 30-NOV-2020 00:06, Premature atrial complexes are now Present T wave amplitude has increased in Anterior leads Confirmed by Christopher Witt ([id number]) on 11/08/2021 9:04:57 PM Referred By: REFERRED SELF Confirmed By:Christopher Witt
== END 2021-11-08 14:57 | disposition home or self-care (01) | DRG 897 ==
LOC: ED 13:24 → EDINP 19:46 → SUATTDRO 19:46 → 2N 11-06 08:46
DX: R29.6 Repeated falls; Z87.891 Personal history of nicotine dependence; Z79.01 Long term (current) use of anticoagulants; I10 Essential (primary) hypertension; R00.1 Bradycardia, unspecified; K64.9 Unspecified hemorrhoids; Z86.711 Personal history of pulmonary embolism; R74.01 Elevation of levels of liver transaminase levels; Z79.84 Long term (current) use of oral hypoglycemic drugs; F41.9 Anxiety disorder, unspecified; Y90.9 Presence of alcohol in blood, level not specified; I95.2 Hypotension due to drugs; Z83.3 Family history of diabetes mellitus; E78.5 Hyperlipidemia, unspecified; F10.139 Alcohol abuse with withdrawal, unspecified; Z82.49 Family history of ischemic heart disease and other diseases of the circulatory system; E83.42 Hypomagnesemia; D72.819 Decreased white blood cell count, unspecified; K92.1 Melena; Z79.899 Other long term (current) drug therapy; T42.3X5A Adverse effect of barbiturates, initial encounter; E11.649 Type 2 diabetes mellitus with hypoglycemia without coma; Z20.822 Contact with and (suspected) exposure to COVID-19; K21.9 Gastro-esophageal reflux disease without esophagitis